=== PATIENT | male | born 1970 | race Caucasian/White ===

== ENCOUNTER → 2018-02-02 11:25 | Outpatient (CLI) | payer OTHER, SELFPAY ==
[2018-02-02 14:21] LABS: AST(SGOT) 24 U/L (15-37); Alanine Aminotransfer ALT/SGPT 54 U/L (16-61); Albumin, Serum 3.5 g/dL (3.2-5.0); Alkaline Phosphatase 104 U/L (45-117); Anion Gap 6 (5-15); BUN 32 mg/dL (7-18); BUN/Creat Ratio 21.8 RATIO (10-20); Chloride 105 mmol/L (98-107); Cholesterol 137 mg/dL (200); Creatinine, Serum 1.47 mg/dL (0.70-1.30); EST Glomerular Filtration Rate 55 mL/min (>60); Est Glom Filt Rate - Afr Amer 66 mL/min (>60); Globulin 3.4 g/dL (2.2-4.2); Glucose 114 mg/dL (74-106); High Density Lipoprotein 34 mg/dL; Potassium 3.5 mmol/L (3.5-5.1); Protein, Total 6.9 g/dL (6.4-8.2); Sodium Level 143 mmol/L (136-145); Triglycerides 222 mg/dL; Very Low Density Lipoprotein 44 mg/dL (5-40)
[2018-02-02 14:26] LABS: Hemoglobin A1c 7.1 % (4.2-6.3)
== END ==
PROVIDERS: Family Provider Family Medicine; PCP Family Medicine; Visit Provider Family Medicine
DX: I10 Essential (primary) hypertension (principal); E78.5 Hyperlipidemia, unspecified; E10.21 Type 1 diabetes mellitus with diabetic nephropathy
CPT/HCPCS: 36415; 80053; 80061; 82043; 82570; 83036

== ENCOUNTER → 2019-03-16 08:46 | Outpatient (CLI) | payer OTHER, SELFPAY ==
[2018-05-26 14:04] VITALS: BMI 34.8
[2019-03-16 12:13] LABS: Absolute Lymphocyte Count 2.73 X10^3/ul (0.83-4.51); Absolute Neutrophil Count 5.8 X10^3/uL (2.0-7.7); Basophil# 0.03 X10^3/uL; Basophil% 0.3 % (0-1); Eosinophil# 0.43 X10^3/uL; Eosinophils% 4.4 % (0-5); Hematocrit 45.9 % (40-54); Hemoglobin 15.3 g/dl (13.0-16.5); Lymphocyte # 2.73 X10^3/ul (4.0); Lymphocyte % 27.8 % (19-41); Mean Corp Hgb Conc 33.3 g/gl (32-36); Mean Corpuscular Hgb 30.5 pg (27.0-32.0); Mean Corpuscular Volume 91.6 fL (80-94); Mean Platelet Vol. 11.9 fl (6.2-12.0); Monocyte# 0.86 X10^3/uL; Monocyte% 8.8 % (0-10); Neutrophil # 5.75 X10^3/uL (2.7-7.7); Neutrophil % 58.5 % (47-70); Platelet Count 235 K/mm3 (150-450); RBC Distribution Width CV 13.8 % (11.6-14.6); RBC Distribution Width SD 45.4 fl (35.1-43.9); Red Blood Count 5.01 M/mm3 (4.6-6.2); White Blood Count 9.8 K/mm3 (4.4-11.0)
[2019-03-16 12:14] LABS: POSITIVE COUNT NO; POSITIVE DIFFERENTIAL NO; POSITIVE MORPHOLOGY NO
[2019-03-16 12:36] LABS: Hemoglobin A1c 6.1 % (4.2-6.3)
[2019-03-16 12:48] LABS: ALB/GLOB Ratio 1.1 RATIO (0.9-2.4); AST(SGOT) 24 U/L (15-37); Alanine Aminotransfer ALT/SGPT 59 U/L (16-61); Albumin, Serum 3.6 g/dL (3.2-5.0); Alkaline Phosphatase 103 U/L (45-117); Anion Gap 7 (5-15); BUN 24 mg/dL (7-18); BUN/Creat Ratio 15.6 RATIO (10-20); Calcium,Total 8.7 mg/dL (8.5-10.1); Chloride 106 mmol/L (98-107); Cholesterol 122 mg/dL (200); Creatinine, Serum 1.54 mg/dL (0.70-1.30); EST Glomerular Filtration Rate 52 mL/min (>60); Est Glom Filt Rate - Afr Amer 63 mL/min (>60); Globulin 3.4 g/dL (2.2-4.2); Glucose 83 mg/dL (74-106); High Density Lipoprotein 35 mg/dL; Potassium 4.2 mmol/L (3.5-5.1); Sodium Level 145 mmol/L (136-145); Triglycerides 217 mg/dL; Very Low Density Lipoprotein 43 mg/dL (5-40)
[2019-03-16 13:01] LABS: Microalbumin:Creatinine Ratio 367.8 mg/g CRE (<30 mg/g CRE)
== END ==
LOC: LAB.FUTURE 09-22 13:49 → BFHLAB 10-14 11:04
PROVIDERS: Family Provider Family Medicine; PCP Family Medicine; Visit Provider Family Medicine
DX: E10.21 Type 1 diabetes mellitus with diabetic nephropathy (principal); N18.3 Chronic kidney disease, stage 3 (moderate); I12.9 Hypertensive chronic kidney disease with stage 1 through stage 4 chronic kidney disease, or unspecified chronic kidney disease; E78.5 Hyperlipidemia, unspecified
CPT/HCPCS: 36415; 80053; 80061; 82043; 82570; 83036; 85025

== ENCOUNTER → 2019-07-20 17:25 | Outpatient (CLI) | payer OTHER, SELFPAY | PROVIDERS: Family Provider Family Medicine; PCP Family Medicine; Referring Provider Podiatrist; Visit Provider Podiatrist | DX: L03.115 Cellulitis of right lower limb (principal) | CPT/HCPCS: 87070; 87075; 87077; 87186; 87205 ==

== ENCOUNTER → 2019-07-26 10:21 | Outpatient (CLI) | payer OTHER, SELFPAY ==
[2018-05-26 14:04] VITALS: BMI 34.8
--- NOTE | 2019-07-26 10:24 | US_ITS ---
STUDY: RENAL ULTRASOUND - COMPLETE REASON FOR EXAM: Male, 49 years old. Chronic kidney disease TECHNIQUE: Ultrasound evaluation of the kidneys was performed with real-time and static mckinnon-scale imaging. COMPARISON: None available. FINDINGS: RIGHT KIDNEY: Normal location of the right kidney, which is normal in size. The right kidney measures 11 cm. There is a normal cortex of the right kidney. There is no right renal mass or cyst. There are no right renal calculi. There is no right hydronephrosis. LEFT KIDNEY: Normal location of the left kidney, which is normal in size. The left kidney measures 12 cm. There is a normal cortex of the left kidney. There is no left renal mass or cyst. There are no left renal calculi. There is no left hydronephrosis. AORTA: No evidence of abdominal aortic aneurysm. I.V.C.: The IVC is patent. BLADDER: The urinary bladder is partially distended and appears unremarkable. US/Kidney and Bladder IMPRESSION: Normal ultrasound of the kidneys and urinary bladder. Electronically Signed: Tucker Love, at 17:03 EDT Tel , Service support ,
== END ==
PROVIDERS: Family Provider Family Medicine; PCP Family Medicine; Referring Provider Internal Medicine Nephrology; Visit Provider Internal Medicine Nephrology
DX: N18.3 Chronic kidney disease, stage 3 (moderate) (principal)
CPT/HCPCS: 76770

== ENCOUNTER → 2020-03-28 11:11 | Outpatient (CLI) | payer OTHER, SELFPAY ==
[2020-03-28 15:26] LABS: Absolute Lymphocyte Count 1.87 X10^3/uL (0.83-4.51); Absolute Neutrophil Count 4.9 X10^3/uL (2.0-7.7); Basophil# 0.03 X10^3/uL; Basophil% 0.4 % (0-1); Eosinophil# 0.33 X10^3/uL; Eosinophils% 4.3 % (0-5); Hematocrit 43.9 % (40-54); Hemoglobin 14.6 g/dL (13.0-16.5); Lymphocyte # 1.87 X10^3/ul (4.0); Lymphocyte % 24.4 % (19-41); Mean Corp Hgb Conc 33.3 g/dL (32-36); Mean Corpuscular Hgb 30.9 pg (27.0-32.0); Mean Platelet Vol. 11.9 fl (6.2-12.0); Monocyte# 0.53 X10^3/uL; Monocyte% 6.9 % (0-10); NRBC Flagged by Analyzer 0 % (0-5); Neutrophil # 4.87 X10^3/uL (2.7-7.7); Neutrophil % 63.6 % (47-70); Platelet Count 206 K/mm3 (150-450); RBC Distribution Width CV 13.1 % (11.6-14.6); RBC Distribution Width SD 44.5 fl (35.1-43.9); Red Blood Count 4.72 M/mm3 (4.6-6.2); White Blood Count 7.7 K/mm3 (4.4-11.0)
[2020-03-28 15:36] LABS: PTHIN 34.6 pg/mL (18.4-80.1)
[2020-03-28 15:41] LABS: Vitamin D,25 Hydroxy 50.1 ng/mL
[2020-03-28 15:48] LABS: Hemoglobin A1c 6.4 % (3.8-5.6)
[2020-03-28 16:00] LABS: AST(SGOT) 18 U/L (15-37); Alanine Aminotransfer ALT/SGPT 43 U/L (16-61); Albumin, Serum 3.4 g/dL (3.2-5.0); Alkaline Phosphatase 109 U/L (45-117); Anion Gap 8 (5-15); BUN 28 mg/dL (7-18); BUN/Creat Ratio 20.1 RATIO (10-20); Calcium,Total 8.8 mg/dL (8.5-10.1); Chloride 102 mmol/L (98-107); Cholesterol 132 mg/dL (200); Creatinine, Serum 1.39 mg/dL (0.70-1.30); EST Glomerular Filtration Rate 58 mL/min (>60); Est Glom Filt Rate - Afr Amer 70 mL/min (>60); Globulin 3.5 g/dL (2.2-4.2); Glucose 240 mg/dL (74-106); High Density Lipoprotein 33 mg/dL; Phosphorus 2.6 mg/dL (2.5-4.9); Potassium 3.3 mmol/L (3.5-5.1); Protein, Total 6.9 g/dL (6.4-8.2); Sodium Level 140 mmol/L (136-145); Thyroid Stim Hormone (TSH) 1.84 uIU/mL (0.358-3.74); Triglycerides 237 mg/dL; Very Low Density Lipoprotein 47 mg/dL (5-40)
[2020-03-28 16:29] LABS: Microalbumin:Creatinine Ratio 1040.1 mg/g CRE (<30 mg/g CRE); Protein, Urine (Random) 346.6 mg/dL (<11.9); Protein:Creat Ratio 1159 mg/g CRE (0-200)
== END ==
PROVIDERS: PCP Family Medicine; Referring Provider Internal Medicine Nephrology; Visit Provider Internal Medicine Nephrology
DX: Z00.00 Encounter for general adult medical examination without abnormal findings (principal); N18.3 Chronic kidney disease, stage 3 (moderate); E10.21 Type 1 diabetes mellitus with diabetic nephropathy; I12.9 Hypertensive chronic kidney disease with stage 1 through stage 4 chronic kidney disease, or unspecified chronic kidney disease; E78.5 Hyperlipidemia, unspecified
CPT/HCPCS: 36415; 80053; 80061; 82043; 82306; 82570; 83036; 83970; 84100; 84156; 84443; 85025

== ENCOUNTER → 2020-09-07 16:06 | Outpatient (CLI) | payer OTHER, SELFPAY ==
[2018-05-26 14:04] VITALS: BMI 34.8
[2020-09-07 17:57] LABS: Anion Gap 4 (5-15); BUN 23 mg/dL (7-18); BUN/Creat Ratio 14.8 RATIO (10-20); Chloride 105 mmol/L (98-107); Creatinine, Serum 1.55 mg/dL (0.70-1.30); EST Glomerular Filtration Rate 51 mL/min (>60); Est Glom Filt Rate - Afr Amer 62 mL/min (>60); Glucose 201 mg/dL (74-106); Potassium 3.3 mmol/L (3.5-5.1); Sodium Level 142 mmol/L (136-145)
[2020-09-07 18:00] LABS: AST(SGOT) 23 U/L (15-37); Alanine Aminotransfer ALT/SGPT 47 U/L (16-61); Albumin, Serum 3.6 g/dL (3.2-5.0); Alkaline Phosphatase 112 U/L (45-117); Bilirubin, Direct 0.18 mg/dL (0.00-0.30); Globulin 3.5 g/dL (2.2-4.2); Protein, Total 7.1 g/dL (6.4-8.2)
[2020-09-07 18:02] LABS: Protein, Urine (Random) 247.3 mg/dL (<11.9); Protein:Creat Ratio 1660 mg/g CRE (0-200)
[2020-09-07 18:06] LABS: Hemoglobin A1c 5.9 % (3.8-5.6)
== END ==
PROVIDERS: Internal Medicine Nephrology; PCP Family Medicine; Referring Provider Family Medicine; Visit Provider Family Medicine
DX: E10.21 Type 1 diabetes mellitus with diabetic nephropathy (principal); R74.8 Abnormal levels of other serum enzymes; N18.30 Chronic kidney disease, stage 3 unspecified
CPT/HCPCS: 36415; 80048; 80076; 82570; 83036; 84156

== ENCOUNTER → 2020-11-23 16:24 | Outpatient (CLI) | payer OTHER, SELFPAY ==
[2018-05-26 14:04] VITALS: BMI 34.8
--- NOTE | 2020-11-23 16:26 | RAD_ITS ---
STUDY: X-RAY - LEFT ANKLE REASON FOR EXAM: Left ankle pain and tenderness of the proximal tibiofibular articulation, fall this morning. TECHNIQUE: 3 view(s) of the ankle. COMPARISON: None. FINDINGS: Normal visualized distal tibia and fibula. There is a corticated ossicle adjacent to the distal lateral malleolus, suggestive of remote injury. There is a small tibiotalar joint effusion. Normal visualized talus and calcaneus. The visualized subtalar, talonavicular, calcaneocuboid and tarsal articulations are normal. There is soft tissue swelling at the medial and lateral aspects of the ankle. There is vascular calcification. RAD/Ankle min 3 Views IMPRESSION: Corticated ossicle adjacent to the distal lateral malleolus suggestive of remote injury. Small tibiotalar joint effusion. Soft tissue swelling. Electronically Signed: Lincoln Britt MD at 8:28 EST Tel , Service support ,
--- NOTE | 2020-11-23 16:26 | RAD_ITS ---
STUDY: X-RAY - LEFT KNEE REASON FOR EXAM: Male, 50 years old. fell on the ice this morning, severe left ankle pain and tenderness at proximal fibular articulation TECHNIQUE: 4 view(s) of the knee. COMPARISON: None. FINDINGS: Subtle acute nondisplaced proximal fibular fracture. No acute dislocation. No acute cortical destruction. Patellar tendon enthesophyte. Mild soft tissue swelling. Trace joint effusion. RAD/Knee 4 or More Views IMPRESSION: Subtle acute nondisplaced proximal fibular fracture Mild soft tissue swelling and trace joint effusion Electronically Signed: Walter Antonio DO at 8:11 EST Tel , Service support ,
== END ==
PROVIDERS: PCP Family Medicine; Referring Provider Family Medicine; Visit Provider Family Medicine
DX: M25.572 Pain in left ankle and joints of left foot (principal); M25.562 Pain in left knee
CPT/HCPCS: 73564; 73610

== ENCOUNTER → 2021-02-26 16:15 | Outpatient (CLI) | payer OTHER, SELFPAY ==
[2018-05-26 14:04] VITALS: BMI 34.8
[2021-02-26 18:44] LABS: Anion Gap 3 (5-15); BUN 27 mg/dL (7-18); Calcium,Total 8.9 mg/dL (8.5-10.1); Chloride 104 mmol/L (98-107); Creatinine, Serum 1.69 mg/dL (0.70-1.30); EST Glomerular Filtration Rate 46 mL/min (>60); Est Glom Filt Rate - Afr Amer 56 mL/min (>60); Glucose 113 mg/dL (74-106); Potassium 4.2 mmol/L (3.5-5.1); Sodium Level 137 mmol/L (136-145)
[2021-02-27 01:39] LABS: Protein, Urine (Random) 114.4 mg/dL (<11.9); Protein:Creat Ratio 3467 mg/g CRE (0-200)
== END ==
PROVIDERS: PCP Family Medicine; Referring Provider Internal Medicine Nephrology; Visit Provider Internal Medicine Nephrology
DX: N18.31 Chronic kidney disease, stage 3a (principal); E10.21 Type 1 diabetes mellitus with diabetic nephropathy; Z51.81 Encounter for therapeutic drug level monitoring; I12.9 Hypertensive chronic kidney disease with stage 1 through stage 4 chronic kidney disease, or unspecified chronic kidney disease
CPT/HCPCS: 36415; 80048; 82570; 84156

== ENCOUNTER 2021-04-12 10:30 | Outpatient (RCR) | payer OTHER, SELFPAY ==
--- NOTE | 2021-03-14 15:02 | HP.PTEVAL_ITS ---
Patient's Visit Information MARCELO FUCHS is a 50 year old M referred to Physical Therapy by Dr. Óscar Denny DO with a diagnosis of PAIN IN LEFT ANKLE AND JOINTS OF LEFT FOOT. Date of Evaluation: 03/14/21 Physical Therapist: Amilcar Wallace, PT, Cert MDT, OCS - Visit Plan Frequency: 2x /Week Duration: 4 Weeks Plan: PATIENT IS LEGALLY BLIND ,TYPE 1 DM. PT INTERVENTIONS WITH FLEXABLITY G- S,STRENGTHENING EX'S ANKLE ,PROPRIOCEPTION AND FUNCTIONAL STRENGTHENING - Subjective This 50 y/o male presents to physical therapy with left ankle pain. Patient injuried left knee twisted 3 months blowing leaves subsequently caused pain left ankle. grossly. Contributing factors patient has diabetes type 1 since 14 y/o along with legally blind ,diabetic neuropathy ,and PAD affecting patient problems, stage 3 kidney disease. Patient has h/o several ankle sprains .Patient has h/o falls. Patient has parathesia feet. Patient c/o burning achy in feet. Patient c/o edema ankle. Patient condition affects QOL and function. SOCIAL: . VOCATION: unemployed - Pain Left Ankle Pain Intensity (Out of 10): 4 Pain Intensity Range: N/A - Objective POSTURE: mild forward posture ,frontal plane mechanics WFL. GAIT: reciprocal pattern. NEURO: C/O Parathesia in feet ,light touch diminished. PROPRIOCEPTION: poor RLE. AROM ANKLE: dorsiflexion 5 degrees, plantarflexion 60 degrees, inversion 30 degrees, eversion 5 degrees. MMT: anterior tibialas 4/5,peroneous and posterior tibials 4-/5,G-S 4-/5. FLEXABILITY: calf mild tight - Goals Goal 1:: Patient to be I with HEP Goal Time Frame: 4-6 Weeks Goal 2:: Patient to decrease pain by 50% or> to improve function and gait Goal Time Frame: 4-6 Weeks Goal 3:: Patient well increase strength left ankle by 4/5 to improve and gait Goal Time Frame: 4-6 Weeks Goal 4:: Patient to improve proprioception by 10sec or> to improve QOL. Goal Time Frame: 4-6 Weeks Goal 5:: Patient to improve LFES SCORE by 5 points or > to improve function. Goal Time Frame: 4-6 Weeks - Rehabilitation Potential Physical Therapy Diagnosis: Patient has left ankle pain along with weakness poor proprioception and comorbities affecting patients condition thus will benefit from skilled PT Rehabilitation Potential: Good - Anticipated Interventions Patient/Client Instruction: Educate patient on: Condition, Plan of Care For the Purpose of:: To decrease pain, To increase ROM, To improve muscle performance and motor function, To improve ability to perform ADL's, To increase tolerance to activity/condition/position, To improve ability of physical actions for home/community/work/leisure, To improve health of tissue, To decrease soft tissue restriction, To increase flexibility/ROM, To improve balance, To improve ability to perform tasks related to life management Therapeutic Exercise to Include: Strength training, Balance training, Flexibilty training, Active ROM Comment: ANKLE For the Purpose of:: To decrease pain, To increase ROM, To improve muscle performance and motor function, To improve ability to perform ADL's, To increase tolerance to activity/condition/position, To improve ability of physical actions for home/community/work/leisure, To increase flexibility/ROM, To improve balance, To reduce risk of recurrence, To improve ability to perform tasks related to life management Thank you for the opportunity to evaluate your patient. For Medicare and Medicare HMO plans, please review the plan of care and approve it. It will need to be FAXED BACK to us at [phone] for Medicare purposes. For Medicare only, by signing this I certify the plan of care. Please let me know if there are questions or concerns regarding this plan of care. Physician Signature: Date:
--- NOTE | 2021-07-02 11:02 | HP.PTDCSUM ---
It has been my pleasure to treat MARCELO FUCHS referred by Dr. Óscar Denny DO, with the diagnosis of PAIN IN LEFT ANKLE AND JOINTS OF LEFT FOOT for a total of 8 visit(s). Discharge Date: 04/12/21 Please see the following information for a summary of their discharge status. Subjective: Patient reports strong Left Ankle Pain Intensity (Out of 10): 3 % Improvement: 50 Objective/Function: POSTURE:WFL. GAIT:RECIPROCAL PATTERN. MMT:4/5 ANKLE. PROPRIOCEPTION : IMPROVE. ANKLE:ROM WFL Goal 1:: Patient to be I with HEP Goal Progress: Goal Met Goal 2:: Patient to decrease pain by 50% or> to improve function and gait Goal Progress: Goal Met Goal 3:: Patient well increase strength left ankle by 4/5 to improve and gait Goal Progress: Goal Met Goal 4:: Patient to improve proprioception by 10sec or> to improve QOL. Goal Progress: Goal Met Goal 5:: Patient to improve LFES SCORE by 5 points or > to improve function. Goal Progress: Goal Met Plan: D/C Discharge Comments: HEP If there are questions or concerns regarding this patient's physical therapy, please feel free to call me at [phone]. Thank you for the referral of this patient. Sincerely, Amilcar Wallace, PT, Cert MDT, OCS Balance/Gait/Functional tests - Balance/Special Test Scores Lower Extremity Functional Score: 54
== END 2021-04-12 19:00 | disposition home or self-care (01) ==
LOC: PT 10:30
PROVIDERS: PCP Family Medicine; Referring Provider Orthopaedic Surgery; Visit Provider Orthopaedic Surgery
DX: M25.572 Pain in left ankle and joints of left foot (principal)
CPT/HCPCS: 97110; 97162

== ENCOUNTER → 2021-05-11 08:57 | Outpatient (CLI) | payer OTHER, SELFPAY ==
[2018-05-26 14:04] VITALS: BMI 34.8
[2021-05-11 10:20] LABS: Absolute Neutrophil Count 5.1 X10^3/uL (2.0-7.7); Basophil# 0.03 X10^3/uL; Basophil% 0.4 % (0-1); Eosinophil# 0.31 X10^3/uL; Eosinophils% 3.7 % (0-5); Hematocrit 40.4 % (40-54); Hemoglobin 13.6 g/dL (13.0-16.5); Lymphocyte % 26.5 % (19-41); Mean Corp Hgb Conc 33.7 g/dL (32-36); Mean Corpuscular Hgb 30.8 pg (27.0-32.0); Mean Corpuscular Volume 91.6 fL (80-94); Mean Platelet Vol. 11.8 fl (6.2-12.0); Monocyte% 7.2 % (0-10); NRBC Flagged by Analyzer 0 % (0-5); Neutrophil # 5.12 X10^3/uL (2.7-7.7); Neutrophil % 61.8 % (47-70); Platelet Count 203 K/mm3 (150-450); RBC Distribution Width SD 42.8 fl (35.1-43.9); Red Blood Count 4.41 M/mm3 (4.6-6.2); White Blood Count 8.3 K/mm3 (4.4-11.0)
[2021-05-11 10:35] LABS: Hemoglobin A1c 5.9 % (3.8-5.6)
[2021-05-11 10:42] LABS: AST(SGOT) 20 U/L (15-37); Alanine Aminotransfer ALT/SGPT 48 U/L (16-61); Albumin, Serum 3.4 g/dL (3.2-5.0); Alkaline Phosphatase 111 U/L (45-117); Bilirubin, Direct 0.12 mg/dL (0.00-0.30); Cholesterol 169 mg/dL (200); Globulin 3.1 g/dL (2.2-4.2); High Density Lipoprotein 28 mg/dL; Protein, Total 6.5 g/dL (6.4-8.2); Triglycerides 691 mg/dL
== END ==
PROVIDERS: PCP Family Medicine; Referring Provider Family Medicine; Visit Provider Family Medicine
DX: E10.21 Type 1 diabetes mellitus with diabetic nephropathy (principal); Z51.81 Encounter for therapeutic drug level monitoring; I10 Essential (primary) hypertension
CPT/HCPCS: 36415; 80061; 80076; 83036; 85025

== ENCOUNTER → 2021-08-07 12:16 | Outpatient (CLI) | payer OTHER, SELFPAY ==
[2021-08-07 15:44] LABS: Anion Gap 2 (5-15); BUN 30 mg/dL (7-18); Calcium,Total 8.5 mg/dL (8.5-10.1); Chloride 107 mmol/L (98-107); Creatinine, Serum 1.67 mg/dL (0.70-1.30); EST Glomerular Filtration Rate 47 mL/min (>60); Est Glom Filt Rate - Afr Amer 56 mL/min (>60); Glucose 108 mg/dL (74-106); Potassium 4.1 mmol/L (3.5-5.1); Sodium Level 138 mmol/L (136-145)
[2021-08-07 15:45] LABS: Protein, Urine (Random) 210.3 mg/dL (<11.9); Protein:Creat Ratio 2173 mg/g CRE (0-200)
== END ==
PROVIDERS: PCP Family Medicine; Referring Provider Internal Medicine Nephrology; Visit Provider Internal Medicine Nephrology
DX: N18.31 Chronic kidney disease, stage 3a (principal)
CPT/HCPCS: 36415; 80048; 82570; 84156

== ENCOUNTER → 2023-03-20 | Outpatient (CLI) | payer OTHER, SELFPAY ==
[2023-03-20 17:56] LABS: Absolute Lymphocyte Count 2.96 X10^3/uL (0.83-4.51); Basophil# 0.04 X10^3/uL; Basophil% 0.3 % (0-1); Eosinophil# 0.54 X10^3/uL; Eosinophils% 4.6 % (0-5); Hematocrit 43.4 % (40-54); Hemoglobin 14.6 g/dL (13.0-16.5); Lymphocyte # 2.96 X10^3/ul (0.83-4.51); Lymphocyte % 25.4 % (19-41); Mean Corp Hgb Conc 33.6 g/dL (32-36); Mean Corpuscular Hgb 31.6 pg (27.0-32.0); Mean Corpuscular Volume 93.9 fL (80-94); Mean Platelet Vol. 11.8 fl (6.2-12.0); Monocyte# 1.09 X10^3/uL; Monocyte% 9.4 % (0-10); NRBC Flagged by Analyzer 0 % (0-5); Neutrophil # 6.98 X10^3/uL (2.7-7.7); Platelet Count 256 K/mm3 (150-450); RBC Distribution Width CV 13.4 % (11.6-14.6); RBC Distribution Width SD 46.2 fl (35.1-43.9); Red Blood Count 4.62 M/mm3 (4.6-6.2); White Blood Count 11.7 K/mm3 (4.4-11.0)
[2023-03-20 18:25] LABS: AST(SGOT) 24 U/L (15-37); Alanine Aminotransfer ALT/SGPT 58 U/L (16-61); Albumin, Serum 3.7 g/dL (3.2-5.0); Alkaline Phosphatase 123 U/L (45-117); Anion Gap 6 (5-15); BUN 32 mg/dL (7-18); BUN/Creat Ratio 20.1 RATIO (10-20); Calcium,Total 9.5 mg/dL (8.5-10.1); Chloride 107 mmol/L (98-107); Cholesterol 144 mg/dL (200); Creatinine, Serum 1.59 mg/dL (0.70-1.30); EST Glomerular Filtration Rate 49 mL/min (>60); Est Glom Filt Rate - Afr Amer 59 mL/min (>60); Globulin 3.8 g/dL (2.2-4.2); Glucose 62 mg/dL (74-106); High Density Lipoprotein 34 mg/dL; Potassium 4.2 mmol/L (3.5-5.1); Protein, Total 7.5 g/dL (6.4-8.2); Sodium Level 141 mmol/L (136-145); Thyroid Stim Hormone (TSH) 2.91 uIU/mL (0.358-3.74); Triglycerides 289 mg/dL; Very Low Density Lipoprotein 58 mg/dL (5-40)
[2023-03-20 18:47] LABS: Hemoglobin A1c 6.4 % (3.8-5.6)
[2023-03-21 07:48] LABS: PTHIN 30.7 pg/mL (18.4-80.1)
== END | disposition home or self-care (01) ==
LOC: BFHLAB 15:13
PROVIDERS: PCP Family Medicine; Referring Provider Family Medicine; Visit Provider Family Medicine
DX: Z00.00 Encounter for general adult medical examination without abnormal findings (principal); E10.21 Type 1 diabetes mellitus with diabetic nephropathy; E10.22 Type 1 diabetes mellitus with diabetic chronic kidney disease; N18.31 Chronic kidney disease, stage 3a; I12.9 Hypertensive chronic kidney disease with stage 1 through stage 4 chronic kidney disease, or unspecified chronic kidney disease
CPT/HCPCS: 36415; 80053; 80061; 83036; 83970; 84443; 85025

== ENCOUNTER → 2025-08-15 | Outpatient (CLI) | payer OTHER, SELFPAY ==
--- NOTE | 2025-08-15 14:57 | ART_ITS ---
Reason For Study VL/Lower Ext Art Exam w/o Exercis
== END | disposition home or self-care (01) ==
LOC: CVS 14:54
PROVIDERS: PCP Family Medicine; Referring Provider Podiatrist; Visit Provider Podiatrist
DX: I73.9 Peripheral vascular disease, unspecified (principal)
CPT/HCPCS: 93923

== ENCOUNTER → 2025-09-22 | Outpatient (CLI) | payer OTHER, SELFPAY ==
[2025-09-22 12:40] LABS: Hematocrit 42.0 % (40-54); Hemoglobin 13.9 g/dL (13.0-16.5); Immature Granulocytes Count 0.140 X10^3/uL (0.0-0.0); Mean Corp Hgb Conc 33.1 g/dL (32-36); Mean Corpuscular Volume 93.3 fL (80-94); Mean Platelet Vol. 11.9 fl (6.2-12.0); NRBC Flagged by Analyzer 0 % (0-5); Platelet Count 187 K/mm3 (150-450); RBC Distribution Width CV 13.4 % (11.6-14.6); RBC Distribution Width SD 45.2 fl (35.1-43.9); Red Blood Count 4.50 M/mm3 (4.6-6.2); White Blood Count 9.7 K/mm3 (4.4-11.0)
[2025-09-22 13:14] LABS: Creatinine, Urine (random) 166.00 mg/dL (39.00-259.00); Microalbumin,Random Urine 193.0 mg/L (<20 mg/L)
[2025-09-22 13:36] LABS: AST(SGOT) 20 U/L (<=37); Alanine Aminotransfer ALT/SGPT 35 U/L (<=46); Albumin, Serum 4.1 g/dL (3.5-5.0); Alkaline Phosphatase 102 U/L (40-129); Anion Gap 10 (5-15); BUN 36 mg/dL (4-19); BUN/Creat Ratio 23.4 RATIO (10-20); Calcium,Total 9.1 mg/dL (7.6-11.0); Carbon Dioxide 26.9 mmol/L (21.0-32.0); Chloride 102 mmol/L (98-108); Cholesterol 149 mg/dL (<=200); Globulin 2.6 g/dL (2.2-4.2); Glucose 123 mg/dL (70-99); Low Density Lipoprotein Calc. 73 mg/dL; Potassium 4.6 mmol/L (3.3-5.1); Triglycerides 265 mg/dL; Very Low Density Lipoprotein 53 mg/dL (5-40); cholesterol:hdl ratio screen 4.50
== END | disposition home or self-care (01) ==
PROVIDERS: PCP Family Medicine; Referring Provider Family Medicine; Visit Provider Family Medicine
DX: Z00.00 Encounter for general adult medical examination without abnormal findings (principal); E10.21 Type 1 diabetes mellitus with diabetic nephropathy; Z12.5 Encounter for screening for malignant neoplasm of prostate
CPT/HCPCS: 36415; 80053; 80061; 82043; 82570; 83036; 84443; 85025